=== PATIENT | female | born 1960 | race Caucasian/White ===

== ENCOUNTER 2024-06-22 14:13 | Emergency (ER) | payer BC, SELFPAY ==
[2024-06-22 14:17] VITALS: BP 171/89; PULSE 65; RESP 19; TEMP 36.8; O2SAT 99
--- NOTE | 2024-06-22 15:07 | ED.GENADULT ---
HPI - General Adult General Chief complaint: Wound/Laceration Stated complaint: Left Hand Finger Laceration Source: patient Mode of arrival: ambulatory Limitations: no limitations History of Present Illness HPI narrative: Patient presents for evaluation of a laceration to the 5th digit of the left hand that occurred just prior to arrival. She indicates she was installing steps when another individual moved a two-by-four, which struck her in the proximal aspect of the 5th digit of the left hand. She reports minimal pain in the affected area. No loss of ROM. No paresthesias. She is not diabetic. Tetanus is not up to date. Related Data Allergies Allergy/AdvReac Type Severity Reaction Status Date / Time codeine Allergy Other Verified 06/22/24 14:49 Penicillins Allergy Other Verified 06/22/24 14:49 Review of Systems Review of Systems: CONSTITUTIONAL: Denies fever, chills, or sweats. EYES: Denies visual changes, redness, or discharge. ENT: Denies rhinorrhea, congestion, sore throat, or otalgia. CARDIOVASCULAR: Denies chest pain, palpitations, or edema. RESPIRATORY: Denies cough or dyspnea. GASTROINTESTINAL: Denies abdominal pain, nausea, vomiting, or diarrhea. GENITOURINARY: Denies dysuria or hematuria. SKIN: Reports laceration to the 5th digit of the left hand MUSCULOSKELETAL: Reports pain in 5th digit of left hand NEUROLOGIC: Denies headache, numbness, dizziness, or weakness. PSYCHIATRIC: Denies anxiety or depression. [facility] Past Medical History Medical History No pertinent past medical history Surgical History Surgical History History of hysterectomy Family History Family History Mother Family history non-contributory Social History Social History (Updated 06/22/24 @ 16:36 by KELECHI Nagel, ) Smoking packs per day: 0.75 Smoking cigarettes per day: 15.0 Smoking status: Current every day smoker Living arrangements: with family Gender identity (if verbalized by the patient): Female Sexual Orientation (if Verbalized by the Patient): Straight or Heterosexual Spiritual care concerns: No Exam Narrative: GENERAL: Well-appearing, well-nourished, and in no acute distress. HEAD: Normocephalic, atraumatic. EYES: PERRLA and EOMI. ENT: Nares clear, no rhinorrhea or epistaxis. Mucous membranes moist. Oropharynx without tonsillar hypertrophy exudate or other lesions. Bilateral TMs pearly vazquez nonbulging NECK: Supple. No adenopathy or masses. No carotid bruits or JVD CHEST: Clear to auscultation. No respiratory distress. No wheezes rales or rhonchi HEART: Regular rate and rhythm. No murmur heard. Normal peripheral pulses. ABDOMEN: Soft, nontender, nondistended, normal active bowel sounds. EXTREMITIES: Normal range of motion of all joints of the 5th digit of the left hand. No edema. SKIN: There is a 3 cm linear laceration to the dorsal aspect of the proximal phalanx of the 5th digit of the left hand. Tendon is visible but not visibly lacerated NEURO: No focal deficits. Alert and oriented x3. PSYCH: Normal mood and affect. Course Course Emergency Course: This is a 63-year-old female who presented for evaluation of a finger laceration. Wound was thoroughly irrigated and closed with nine sutures. Patient tolerated well. Triple antibiotic ointment applied. Provided with finger splint. She indicates she has a known allergy to an antibiotic that starts with the letter c . We called her PCP in [place] and he indicated that it would be okay to proceed with cephalexin. Advised on wound care. Follow up with hand surgeon. Tendon was visible on exam but appeared intact and she had full ROM present. If she develops evidence of infection she should go to the ER. Pt in agreement with plan of care. Level of Care: E
[2024-06-22] MEDS: TETANUS,DIPHTHERIA,AC PERTUSSIS ADULT (0.5 ML) BOOSTRIX IM (15:14)
[2024-06-22] MEDS: LIDOCAINE HCL 1% LOCAL INJ 2 ML AMPUL 4 ML INFILTRATE (15:15)
== END 2024-06-22 16:55 | disposition home or self-care (01) ==
PROVIDERS: Emergency Provider Nurse Practitioner
DX: S61.217A Laceration without foreign body of left little finger without damage to nail, initial encounter (principal); W22.8XXA Striking against or struck by other objects, initial encounter; Z23 Encounter for immunization; F17.210 Nicotine dependence, cigarettes, uncomplicated
CPT/HCPCS: 12002; 90471; 90715; 99213; G0463